=== PATIENT | female | born 1990 | race Caucasian/White ===

== ENCOUNTER 2022-08-30 00:22 | Emergency (ER) | payer OTHER ==
[~2022-08-30] VITALS: Ht 175.3 cm; Wt 108.9 kg
[2022-08-30] MEDS ORDERED: METOCLOPRAMIDE HCL 10 MG/2 ML VIAL IV ONE (01:15)
[2022-08-30] MEDS ORDERED: KETOROLAC TROMETHAMINE 30 MG INJ IVP ONE (01:15)
[2022-08-30] MEDS ORDERED: IV NS 1000 ML 1,000 ML IV ONE (01:15)
[2022-08-30] MEDS ORDERED: diphenhydrAMINE 50 MG/1 ML VIAL IV ONE (01:15)
--- NOTE | 2022-08-30 01:35 | NUR ---
Dr. Nunez at bedside. MSE in progress.
[2022-08-30 01:51] LABS: *BILIRUBIN,URIN NEGATIVE (NEGATIVE); *BLOOD, URINE NEGATIVE (NEGATIVE); *CLARITY,URINE CLEAR (CLEAR); *COLOR,URINE YELLOW (YELLOW); *KETONES,URINE NEGATIVE (NEGATIVE); *UROBILINOGEN,URINE 0.2 E.U./dl (NORMAL); LEUKOCYTE ESTERASE ,URINE NEGATIVE (NEGATIVE); NITRITE, URINE NEGATIVE (NEGATIVE); PH,URINE 5.5 (5.0-8.0); UGLUCOSE NEGATIVE (NEGATIVE)
[2022-08-30 01:53] LABS: *URINE HCG, QUAL NEGATIVE (NEGATIVE)
[2022-08-30 01:54] LABS: HEMATOCRIT 41.3 % (31.2-41.9); MEAN CORPUSCULAR HEMOGLOBIN 29.8 uug (24.7-32.8); MEAN CORPUSCULAR VOLUME 86.7 fL (75.5-95.3); PLATELET COUNT (AUTO) 270 K/uL (179-408)
[2022-08-30] MEDS ORDERED: diphenhydrAMINE 50 MG/1 ML VIAL ONE (01:56)
[2022-08-30] MEDS ORDERED: METOCLOPRAMIDE HCL 10 MG/2 ML VIAL ONE (01:56)
[2022-08-30] MEDS ORDERED: KETOROLAC TROMETHAMINE 30 MG INJ ONE (01:56)
[2022-08-30 02:03] LABS: BILIRUBIN,DIRECT 0.1 mg/dL (0.0-0.2); BILIRUBIN,TOTAL 0.2 mg/dL (0.2-1.0); POTASSIUM 3.6 mmol/L (3.5-5.1); TOTAL PROTEIN, SERUM 8.2 g/dL (6.4-8.2)
[2022-08-30] MEDS ORDERED: NAPR-1164 PO (02:47)
[2022-08-30] MEDS ORDERED: SUMA100T16 PO (02:47)
--- NOTE | 2022-08-30 03:00 | NUR ---
Patient discharged to home in stable condition. A/O x4. NAD noted. Ambulatory with a steady gait. All belongings with patient. Written and verbal after care instructions given. Patient verbalizes understanding of instructions. Stressed follow up or return to ER for worsening s/s.
[2022-08-30 03:06] VITALS: BP 120/76
[2022-08-30 04:40] LABS: THYROID STIMULATING HORMONE 2.167 mIU/mL (0.358-3.740)
== END 2022-08-30 03:00 | disposition home or self-care (01) ==
LOC: ER 00:31
DX: G43.909 Migraine, unspecified, not intractable, without status migrainosus (principal); M79.18 Myalgia, other site; J45.909 Unspecified asthma, uncomplicated; Z80.0 Family history of malignant neoplasm of digestive organs; Z83.3 Family history of diabetes mellitus; Z82.3 Family history of stroke; R53.83 Other fatigue; F17.290 Nicotine dependence, other tobacco product, uncomplicated
CPT/HCPCS: 99285; 96374; 96375; 96361; 80076; 80048; 81003; 84703; 83735; 84443; 85025; 36415; 93005; J1200; J1885; J2765; J7040; A4663